=== PATIENT | female | born 1950 | race Caucasian/White ===

== ENCOUNTER 2022-01-14 14:15 | Emergency (ER) | payer MEDICARE, OTHER ==
[~2022-01-14] VITALS: Ht 157.5 cm; Wt 81.8 kg
[~2022-01-14 14:15] MED LIST: ESCI10TA45 PO; LANTUS SQ; LEVO75TA PO; LIRA0.6P SQ; LOSA25TA96 PO; MAX25Tt PO; METF500T PO; NOR5T PO; SIMV-42 PO
[2022-01-14 14:44] VITALS: BP 99/53
[2022-01-14 15:16] LABS: BASOPHILS # (AUTO) 0.1 X10'3 (0-0.2); BASOPHILS % (AUTO) 1.2 % (0-1); EOSINOPHILS # (AUTO) 0.3 X10'3 (0-0.9); EOSINOPHILS % (AUTO) 3.4 % (0-6); HEMATOCRIT 34.2 % (35.0-45.0); HEMOGLOBIN 11.1 g/dl (12.0-16.0); LYMPHOCYTES # (AUTO) 3.3 X10'3 (1.1-4.8); LYMPHOCYTES % (AUTO) 33.1 % (21-51); MEAN CORPUSCULAR HEMOGLOBIN 28.6 PG (27.0-31.0); MEAN CORPUSCULAR HGB CONC 32.4 g/dL (33.0-36.5); MEAN CORPUSCULAR VOLUME 88.3 FL (78-98); MONOCYTES # (AUTO) 0.9 X10'3 (0-0.9); MONOCYTES % (AUTO) 8.9 % (2-12); NEUTROPHILS # (AUTO) 5.4 X10'3 (1.8-7.7); NEUTROPHILS % (AUTO) 53.4 % (42-75); PLATELET COUNT 249 X10'3 (140-440); RED BLOOD COUNT 3.88 X10'6 (4.20-5.60); RED CELL DISTRIBUTION WIDTH 16.6 % (11.5-14.5)
[2022-01-14] MEDS ORDERED: DOXYCYCLINE 100MG CAPSULE PO STA (15:31)
[2022-01-14 15:35] LABS: ALANINE AMINOTRANSFERASE 52 U/L (12-78); ALBUMIN 3.5 G/DL (3.4-5.0); ALKALINE PHOSPHATASE 150 IU/L (46-116); ANION GAP 8 (8-16); ASPARTATE AMINO TRANSFERASE 45 U/L (10-37); BILIRUBIN,TOTAL 0.4 MG/DL (0.1-1.0); BLOOD UREA NITROGEN 39 MG/DL (7-18); BUN/CREATININE RATIO 22.4 (6.6-38.0); C-REACTIVE PROTEIN 3.39 MG/DL (0.0-0.5); CHLORIDE 104 MMOL/L (99-107); CREATININE 1.74 MG/DL (0.40-0.90); GLUCOSE 89 MG/DL (70-104); POTASSIUM 3.7 MMOL/L (3.5-5.1); SODIUM 139 MMOL/L (135-145); TOTAL CARBON DIOXIDE 27.2 MMOL/L (24-32); eGFR 29 ML/MIN
[2022-01-14] MEDS ORDERED: cephalexin 250mg capsule PO ONE (15:35)
[2022-01-14] MEDS ORDERED: ondansetron 4mg rapidly disintigrating tab PO ONE (15:35)
[2022-01-14] MEDS ORDERED: HYDROcodone/acetaminophen 10/325mg tab PO ONE (15:35)
[2022-01-14] MEDS ORDERED: DOXY100C76 PO (16:06)
[2022-01-14] MEDS ORDERED: HYDR-3965 PO (16:06)
[2022-01-14] MEDS ORDERED: ONDA4TAB12 PO (16:06)
[2022-01-14] MEDS ORDERED: CEPH250T PO (16:06)
== END 2022-01-14 16:30 | disposition home or self-care (01) ==
LOC: ER 14:15
DX: T81.89XA Other complications of procedures, not elsewhere classified, initial encounter (principal); G89.18 Other acute postprocedural pain; I10 Essential (primary) hypertension; E11.9 Type 2 diabetes mellitus without complications; E05.90 Thyrotoxicosis, unspecified without thyrotoxic crisis or storm; G89.29 Other chronic pain; F32.A Depression, unspecified; Z90.89 Acquired absence of other organs; Z90.710 Acquired absence of both cervix and uterus; Z72.89 Other problems related to lifestyle; Z91.030 Bee allergy status; Z88.2 Allergy status to sulfonamides; Z88.5 Allergy status to narcotic agent; Z91.040 Latex allergy status; Z88.8 Allergy status to other drugs, medicaments and biological substances; Z79.2 Long term (current) use of antibiotics; Z79.4 Long term (current) use of insulin; Z98.890 Other specified postprocedural states; Z79.899 Other long term (current) drug therapy; Y83.8 Other surgical procedures as the cause of abnormal reaction of the patient, or of later complication, without mention of misadventure at the time of the procedure
CPT/HCPCS: 36415; 73620; 80053; 84145; 85025; 85651; 86140; 99284

== ENCOUNTER 2024-02-27 10:42 | Emergency (ER) | payer MEDICARE, OTHER ==
[~2024-02-27] VITALS: Ht 157.5 cm; Wt 84.1 kg
[~2024-02-27 10:42] MED LIST changes: +LOSA-415 PO; -LOSA25TA96 PO; +ONDA-243 PO
[2024-02-27 10:43] VITALS: BP 100/56; PULSE 73; RESP 18; TEMP 97.6; O2SAT 94
[2024-02-27] MEDS ORDERED: ibuprofen tablet 400 MG TABLET PO ONE (11:40)
[2024-02-27] MEDS: ibuprofen 200mg tablet PO ONE (11:45)
== END 2024-02-27 12:21 | disposition home or self-care (01) ==
LOC: ER 10:42
DX: S40.012A Contusion of left shoulder, initial encounter (principal); S69.82XA Other specified injuries of left wrist, hand and finger(s), initial encounter; F32.A Depression, unspecified; E11.9 Type 2 diabetes mellitus without complications; I10 Essential (primary) hypertension; E21.3 Hyperparathyroidism, unspecified; G89.29 Other chronic pain; M54.9 Dorsalgia, unspecified; Z90.89 Acquired absence of other organs; Z90.49 Acquired absence of other specified parts of digestive tract; Z88.8 Allergy status to other drugs, medicaments and biological substances; Z90.710 Acquired absence of both cervix and uterus; Z88.5 Allergy status to narcotic agent; Z91.040 Latex allergy status; Z91.030 Bee allergy status; Z88.2 Allergy status to sulfonamides; Z79.4 Long term (current) use of insulin; Z79.899 Other long term (current) drug therapy; W01.0XXA Fall on same level from slipping, tripping and stumbling without subsequent striking against object, initial encounter; Y93.89 Activity, other specified; Y92.89 Other specified places as the place of occurrence of the external cause; Y99.8 Other external cause status
CPT/HCPCS: 73030; 73110; 99284